=== PATIENT | male | born 1995 | race Caucasian/White ===

== ENCOUNTER 2020-04-18 17:36 | Emergency (ER) | payer SELFPAY ==
[~2020-04-18] VITALS: Ht 180.3 cm; Wt 81.6 kg
[2020-04-18 17:38] VITALS: BP 135/89
--- NOTE | 2020-04-18 17:45 | NUR ---
ERMD AT BEDSIDE
--- NOTE | 2020-04-18 17:45 | NUR ---
24 Y/O M C/C LEFT SHOULDER DISLOCATION WHILE REACHING BACK. PER PT CHRONIC PROBLEM SINCE HIGH SCHOOL AFTER FOOTBALL INJURY. PAST YEAR HAS HAD 5 TIMES SHOULDER DISLOCATION. PT PRESENTS IN NO DISTRESS. LIMITED ROM; CMS INTACT. PT NKA. NO HX. NO SX. NO RX. SIDE RAIL X1.
--- NOTE | 2020-04-18 17:53 | NUR ---
RAD AT BEDSIDE
--- NOTE | 2020-04-18 17:55 | NUR ---
ERMD AT BEDSIDE
[2020-04-18 18:09] VITALS: BP 135/89
--- NOTE | 2020-04-18 18:10 | NUR ---
Patient discharged with v/s stable. Written and verbal after care instructions given and explained. Patient verbalized understanding. Ambulatory with steady gait. All questions addressed prior to discharge. Advised to follow up with PMD.
== END 2020-04-18 18:10 | disposition home or self-care (01) ==
LOC: MED 17:36
DX: S43.085A Other dislocation of left shoulder joint, initial encounter (principal); X50.9XXA Other and unspecified overexertion or strenuous movements or postures, initial encounter; Y93.89 Activity, other specified; Y92.89 Other specified places as the place of occurrence of the external cause; Y99.8 Other external cause status
CPT/HCPCS: 23650; 73030; 99284

== ENCOUNTER 2020-05-07 21:03 | Emergency (ER) | payer SELFPAY ==
[~2020-05-07] VITALS: Ht 177.8 cm; Wt 81.6 kg
[2020-05-07 21:35] VITALS: BP 124/80
--- NOTE | 2020-05-07 23:21 | NUR ---
PT AMBULATED TO BED 11
--- NOTE | 2020-05-07 23:30 | NUR ---
24 YEAR OLD MALE COMPLAINS OF LEFT SHOULDER DISLOCATION X 2 HOURS AGO. PT STATES THAT THIS HAPPENS FREQUENTLY, GOING TO FLEMING SOON. PT AOX4, BREATHING EVEN AND UNLABORED, SKIN WARM AND DRY. BED IN LOWEST POSITION, LOCKED, BED RAIL UPX1. ERMD AT BEDSIDE PMH - DENIES ALLERGIES - NKA
--- NOTE | 2020-05-07 23:31 | NUR ---
Dr. Moses examining patient.
--- NOTE | 2020-05-07 23:35 | NUR ---
ERMD PERFORM PROCEDURE ON PT
--- NOTE | 2020-05-07 23:53 | NUR ---
SLING SIZE LARGE PLACED ON PT L ARM. FITTED TO PT SIZE
[2020-05-08] VITALS: BP 112/71
--- NOTE | 2020-05-08 | NUR ---
Patient discharged with v/s stable. Written and verbal after care instructions about shoulder dislocation given and explained. Patient verbalized understanding. Ambulatory with steady gait. All questions addressed prior to discharge. Advised to follow up with PMD.
== END 2020-05-08 | disposition home or self-care (01) ==
LOC: MED 21:03
DX: S43.005A Unspecified dislocation of left shoulder joint, initial encounter (principal); X58.XXXA Exposure to other specified factors, initial encounter; Y93.89 Activity, other specified; Y92.89 Other specified places as the place of occurrence of the external cause; Y99.8 Other external cause status
CPT/HCPCS: 23650; 73020; 73030; 99284; Q0092